=== PATIENT | female | born 1985 | race Caucasian/White ===

== ENCOUNTER 2017-11-23 18:32 | Emergency (ER) | payer MEDICARE, MEDICAID ==
[~2017-11-23] VITALS: Ht 149.9 cm; Wt 102.3 kg
[~2017-11-23 18:32] MED LIST: ADDERALL20 MG PO; AMBIEN 10MG10 MG PO; AMOXICILLIN 8751 TAB PO; ANUSOL-HC SUPPO25 MG RC; BIPOLAR MED; CLEOCIN HC150 MG/CAP PO; FLEXERIL10 MG PO; KLONOPIN 1MG1 MG PO; LATUDA80 MG PO; LORTAB 5/500 501 TAB PO; LORTAB 7.5/5001 TAB PO; MELOXICAM; MOTRIN 600600 MG/TAB PO; NAPROSYN500 MG PO; NO HOME MEDICATIONS; NORCO 325 MG-51 TAB PO; NORCO 325 MG-7.1 TAB PO; PERCOCET 325 MG1 TA2 PO; PHENERGAN 25 TA25 MG PO; PRILOSEC 20MG20 MG PO; PROZAC 20MG20 MG PO; VICODIN 5/5001 UDTAB PO; XANAX1 MG PO; XANAX2 MG PO
[2017-11-23 18:36] VITALS: TEMP 98.1
[2017-11-23] MEDS ORDERED: LUNESTA 1MG TAB1 MG PO (18:39)
[2017-11-23 20:30] VITALS: BP 130/99; PULSE 76
== END 2017-11-23 20:31 | disposition home or self-care (01) ==
LOC: COL.ER 18:32
DX: S86.911A Strain of unspecified muscle(s) and tendon(s) at lower leg level, right leg, initial encounter (principal); J45.909 Unspecified asthma, uncomplicated; F31.9 Bipolar disorder, unspecified; F41.9 Anxiety disorder, unspecified; F17.210 Nicotine dependence, cigarettes, uncomplicated; W01.0XXA Fall on same level from slipping, tripping and stumbling without subsequent striking against object, initial encounter; Y92.89 Other specified places as the place of occurrence of the external cause
CPT/HCPCS: L1846

== ENCOUNTER 2020-03-25 21:13 | Emergency (ER) | payer MEDICARE, MEDICAID ==
[~2020-03-25] VITALS: Ht 149.9 cm; Wt 114.1 kg
[~2020-03-25 21:13] MED LIST changes: +LUNESTA 1MG TAB1 MG PO
[2020-03-25 21:22] VITALS: BP 136/92; TEMP 97.4
[2020-03-25] MEDS ORDERED: ULTRAM 50MG TAB50 MG PO (21:42)
[2020-03-25 22:01] VITALS: PULSE 109
[2020-03-31] MEDS ORDERED: VRAYLAR3 MG PO (09:48)
[2020-03-31] MEDS ORDERED: ZOLOFT 100MG100 MG PO (09:48)
[2020-03-31] MEDS ORDERED: DESYREL DIVIDO150 M1 PO (09:48)
[2020-03-31] MEDS ORDERED: FLEXERIL 1010 MG/TAB PO (10:35)
[2020-03-31] MEDS ORDERED: EC-NAPROSYN500 MG PO (10:35)
== END 2020-03-25 22:00 | disposition home or self-care (01) ==
LOC: COL.ER 21:13
DX: S02.5XXA Fracture of tooth (traumatic), initial encounter for closed fracture (principal); K02.9 Dental caries, unspecified; F31.9 Bipolar disorder, unspecified; F41.9 Anxiety disorder, unspecified; F17.210 Nicotine dependence, cigarettes, uncomplicated; Z88.8 Allergy status to other drugs, medicaments and biological substances; X58.XXXA Exposure to other specified factors, initial encounter

== ENCOUNTER → 2020-03-31 | Emergency (ER) | payer MEDICARE, MEDICAID ==
[~2020-03-31] VITALS: Ht 149.9 cm; Wt 116.8 kg
[~2020-03-31] MED LIST changes: +DESYREL DIVIDO150 M1 PO; +EC-NAPROSYN500 MG PO; +FLEXERIL 1010 MG/TAB PO; +ULTRAM 50MG TAB50 MG PO; +VRAYLAR3 MG PO; +ZOLOFT 100MG100 MG PO
[2020-03-31 09:34] VITALS: BP 156/83; PULSE 124; TEMP 97.9
== END ==
LOC: COL.ER 09:23
DX: M54.5 Low back pain (principal); G89.29 Other chronic pain; F32.9 Major depressive disorder, single episode, unspecified; F17.210 Nicotine dependence, cigarettes, uncomplicated; Z88.8 Allergy status to other drugs, medicaments and biological substances

== ENCOUNTER 2020-04-16 11:31 | Emergency (ER) | payer MEDICARE, MEDICAID ==
[~2020-04-16] VITALS: Ht 149.9 cm; Wt 109.5 kg
[2020-04-16 11:44] VITALS: TEMP 97.9
[2020-04-16 11:54] LABS: COLLECTION METHOD CLEAN CATCH
[2020-04-16] MEDS ORDERED: ULTRAM 50MG TAB50 MG PO ×2 (12:04→12:32)
[2020-04-16 12:21] LABS: PH 6 (5-8); URINE APPEARANCE Hazy; URINE BACTERIA Rare /hpf; URINE BILIRUBIN Negative (NEGATIVE); URINE BLOOD Negative (NEGATIVE); URINE COLOR Yellow; URINE GLUCOSE Negative (NEGATIVE); URINE KETONE Negative (NEGATIVE); URINE LEUKOCYTE ESTERASE Negative (NEGATIVE); URINE NITRATE Negative (NEGATIVE); URINE PROTEIN(semi-quant) Negative (NEGATIVE); URINE UROBILINOGEN Negative (NEGATIVE)
[2020-04-16 12:34] VITALS: BP 115/69; PULSE 62
== END 2020-04-16 12:43 | disposition home or self-care (01) ==
LOC: COL.ER 11:31
PROVIDERS: Physician Assistant
DX: M54.5 Low back pain (principal); G89.29 Other chronic pain; F17.210 Nicotine dependence, cigarettes, uncomplicated; F31.9 Bipolar disorder, unspecified; F20.9 Schizophrenia, unspecified
CPT/HCPCS: J1885